=== PATIENT | male | born 1950 | race Caucasian/White ===

== ENCOUNTER 2023-11-13 10:31 | Emergency (ER) | payer MEDICARE, SELFPAY ==
[2023-11-13 10:42] VITALS: BP 168/83
--- NOTE | 2023-11-13 12:07 | ED.MUSCINJ ---
HPI-Injury
General
Chief Complaint: Musculo-Skeletal Complaint
Source: patient
Exam Limitations: none
Time Seen by Provider: 11/13/23 12:00
Nursing documentation reviewed up to this point in time: agreed with
Travel History
Have you had any contact with someone who has COVID-19?: No
Do you have any symptoms of coronavirus? Fever > 100 degrees, chills, cough, shortness of breath, sore throat, loss of taste or smell, muscle aches, or headache?: No
History of Present Illness-Injury
Initial Injury comments:
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 He hit the left side of his head, he is not anticoagulated, no
loss of conscious, denies headache or neck pain. He states he just wanted to be sure nothing was broken. Mild tingling in fingers of right hand.
Past History
Past History
ED Past Medical History: Cancer (Prostate cancer status post radiation) and HTN
ED Past Surgical History: Other (imperforate anus, Prostatectomy)
Social History
Tobacco: Former smoker
Alcohol: None
Drug: None
Personal: Single
Living: other (Lives at the [facility])
Family History
Family History: Other (Mother with leukemia, father with stroke at 53 years old)
Review of Systems
Review of Systems
Allergies reviewed?: Yes
All Other Systems: ROS reviewed and negative except as documented in HPI and ROS
Respiratory: Denies trouble breathing
Cardiac: Denies chest pain
ABD/GI: Denies nausea or vomiting
Musculoskeletal: Reports other (pain right upper arm)
Skin: Reports other (mild scrape left forehead)
Neurological: Reports no symptoms
Phy Exam
Physical Exam
Physical Exam:
GENERAL: No acute distress. A&Ox3.
CONSTITUTIONAL: Afebrile.
EYES: Clear, conjunctivae normal
Neck: Supple
ENMT: moist mucus membranes, Pharynx nl
RESPIRATORY: Regular respirations, nonlabored, lungs clear.
CARDIOVASCULAR: Regular rate and rhythm, no murmurs, no rubs.
MUSCULOSKELETAL: No spinal bony tenderness. Mild tenderness to palpate right deltoid area. No swelling or discoloration here. Distal neurovascular intact. moves with ease. Well perfused.
SKIN: Warm, dry, pink
PSYCH: Normal mood and affect. Well kept, interactive and appropriate
NEUROLOGIC: Awake, alert and oriented. No focal neurological deficits
Injury Course
Orders/Labs/Results
Orders:
Orders
11/13/23 10:45
Humerus, Right 2 Views [CR Humerus - Right Min 2 View*] Urgent
Comment:
Reason For Exam: fell into a wall c/o humerus pain
MDM/Problems Addressed
Differential Diagnosis Includes:
Contusion, fracture
MDM/Problems Addressed:
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 He hit the left side of his head, he is not anticoagulated, no
loss of conscious, denies headache or neck pain. He states he just wanted to be sure nothing was broken.
X-ray of right humerus initially read by this examiner, no acute abnormality.
Patient has full ROM of right upper extremity with no significant pain
Mild tingling in his hand and fingers most likely from proximal swelling. He has appt with his PCP in 3 days and will have it evaluated if it persists.
*Critical Care Note
Total Time (30-74mins, 75-104mins- exclusive of procedures): Not Applicable
ED Attending Note
-
Portions of this chart may have been created with voice recognition software.� Occasional wrong word or��sound alike� substitutions may have occurred due to the inherent limitations of voice recognition software.
Discharge Plan
Departure
Patient Disposition: Home (Routine Discharge)
Date of Disposition: 11/13/23
Time of Disposition: 12:05
Patient with high blood pressure during this ER visit?: No
Condition: Good
Discharge Problem:
Soft tissue injury of right upper arm, Fall from slip, trip, or stumble
Instructions: Contusion (DC)
Prescriptions:
No Action
cyanocobalamin (vitamin B-12) 1,000 MCG tablet
1,000 mcg PO QPM
tamsulosin 0.4 MG capsule
0.4 mg PO DAILY
[id number]-pzc-gkr-eiuetes-ast [MegaRed [place]-3 Krill Oil] 1 EACH capsule
1 cap PO QPM
lisinopril 5 MG tablet
15 mg PO DAILY
Saccharomyces boulardii 250 MG capsule
250 mg PO BID
guar gum 1 PKT packet
1 pkt PO DAILY
red yeast rice 600 MG tablet
606 mg PO BID
Cholecalciferol (Vitamin D3) [Vitamin D3] 50 MCG Capsule
50 mcg PO QPM
sm-ppi-qyqmo-Y5-nglumhd-sdrskr [Centrum Silver Men] 1 EACH tablet
1 ea PO DAILY
polyethylene glycol 3350 17 GRAMS powder in packet
17 grams PO QPMPRN PRN (Reason: constipation) 30 Days Qty: 30 0RF
Referrals:
Mirza Son DO [Family Provider] - As needed
Activity Restrictions/Additional Instructions:
As we discussed, your x-ray is normal. Nothing broken.
Tylenol as needed for pain
Interventions
Interventions:
*Risk Screen - Suicide Last Done: 11/13/23 11:03
*General Assessment Last Done: 11/13/23 11:03
*Neglect/Abuse Screening Last Done: 11/13/23 11:03
ED- Fall Risk Assessment Last Done: 11/13/23 12:10
*ED COVID-19 Vaccine History Last Done: 11/13/23 10:42
*Nursing Disposition Last Done: 11/13/23 12:10
ED-Musculoskeletal Assessment Last Done: 11/13/23 11:03
Discharge Date and Time
Discharge Date/Time: 11/13/23 12:11
== END 2023-11-13 12:11 | disposition home or self-care (01) ==
LOC: EMR 10:31
PROVIDERS: EMERGENCY PHYSICIAN Emergency Medicine; FAMILY PHYSICIAN Family Medicine
DX: S49.91XA Unspecified injury of right shoulder and upper arm, initial encounter (principal); W01.0XXA Fall on same level from slipping, tripping and stumbling without subsequent striking against object, initial encounter; Z87.891 Personal history of nicotine dependence
CPT/HCPCS: 99283; 73060

== ENCOUNTER → 2023-11-21 11:47 | Outpatient (REF) | payer MEDICARE, SELFPAY | LOC: RAD 11:47 | PROVIDERS: ATTENDING PHYSICIAN Family Medicine | DX: M54.50 Low back pain, unspecified (principal) | CPT/HCPCS: 72110 ==